=== PATIENT | male | born 1955 | race African-American/Black ===

== ENCOUNTER 2020-12-02 09:33 | Emergency (ER) | payer OTHER ==
[~2020-12-02] VITALS: Ht 195.6 cm; Wt 131.1 kg
[~2020-12-02 09:33] MED LIST: GLIM2TAB31 PO; GLIM4TAB37 PO; METF-442 PO
[2020-12-02 09:48] VITALS: BP 135/51
[2020-12-02] MEDS ORDERED: OXYMETAZOLINE HCL NASAL SPRAY 30 ML BOTTLE NS ONE (10:17)
[2020-12-02] MEDS: OXYMETAZOLINE HCL NASAL SPRAY 30 ML BOTTLE NS ONE (10:22)
[2020-12-02 10:33] LABS: BASOPHILS % (AUTO) 0.5 % (0.0-2.0); EOSINOPHILS % (AUTO) 1.7 % (0.0-6.0); HEMATOCRIT 39 % (39-51); HEMOGLOBIN 12.8 g/dL (13.5-17.5); LYMPHOCYTES # (AUTO) 2.1 /CMM (0.8-4.8); MEAN CORPUSCULAR HGB CONC 33 g/dl (31.0-36.0); MEAN CORPUSCULAR VOLUME 92 fL (80-96); MONOCYTES # (AUTO) 0.5 /CMM (0.1-1.30); NEUTROPHILS # (AUTO) 3.4 /CMM (1.8-8.9); NEUTROPHILS % (AUTO) 55.8 % (43.0-81.0); PLATELET COUNT (AUTO) 176 /CMM (150-450); RED BLOOD CELL COUNT(AUTO) 4.26 MIL/uL (4.5-6.0)
== END 2020-12-02 11:42 | disposition home or self-care (01) ==
LOC: ER 09:36
DX: R04.0 Epistaxis (principal); I10 Essential (primary) hypertension; E11.9 Type 2 diabetes mellitus without complications; Z95.1 Presence of aortocoronary bypass graft; Z98.890 Other specified postprocedural states; Z79.84 Long term (current) use of oral hypoglycemic drugs; Z79.899 Other long term (current) drug therapy
CPT/HCPCS: 36415; 85025-TC; 85730-TC

== ENCOUNTER 2021-06-08 00:40 | Emergency (ER) | payer OTHER ==
[~2021-06-08] VITALS: Ht 195.6 cm; Wt 131.5 kg
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
--- NOTE | 2021-06-08 01:17 | NUR ---
ER AT BEDSIDE
--- NOTE | 2021-06-08 01:22 | NUR ---
COVID SWABS DONE AND SENT TO LAB.
[2021-06-08 03:30] VITALS: BP 138/69
--- NOTE | 2021-06-08 03:30 | NUR ---
Patient discharged to home in stable condition. Written and verbal after care instructions given. Patient verbalizes understanding of instruction.
== END 2021-06-08 03:25 | disposition home or self-care (01) ==
LOC: ER 00:47
DX: R05.9 Cough, unspecified (principal); R52 Pain, unspecified; Z20.822 Contact with and (suspected) exposure to COVID-19; E11.65 Type 2 diabetes mellitus with hyperglycemia; Z79.84 Long term (current) use of oral hypoglycemic drugs; I11.9 Hypertensive heart disease without heart failure; Z95.1 Presence of aortocoronary bypass graft; R94.31 Abnormal electrocardiogram [ECG] [EKG]
CPT/HCPCS: 71045; 82962; 87426; 87804; 93005; 99285; C9803

== ENCOUNTER 2021-07-02 21:23 | Emergency (ER) | payer OTHER ==
[~2021-07-02] VITALS: Ht 195.6 cm; Wt 131.5 kg
[2021-07-02 21:34] VITALS: BP 150/77
--- NOTE | 2021-07-02 21:41 | NUR ---
BIBS TO ER BED 19. AAOX4. AMBULATORY. NOT IN DISTRESS. BREATHING EVEN AND UNLABORED. CAME IN FOR COUGH AND CONGESTION X 2 DAYS. PT IS TALKING IN FULL SENTENCES. SATTING AT 96% ON RA. PT IS AFEBRILE. AWAITING MD FOR MARY
--- NOTE | 2021-07-02 22:58 | NUR ---
XRAY AT BEDSIDE. COVID SWAB DONE AND SENT TO LAB
--- NOTE | 2021-07-02 23:00 | NUR ---
Dilip whitten in ED - 07/02/21 at 2300 by ADAM XRAY AT BEDSIDE
[2021-07-03] MEDS ORDERED: GUAI200T5 PO (01:06)
== END 2021-07-03 01:17 | disposition home or self-care (01) ==
LOC: ER 21:28
DX: J20.9 Acute bronchitis, unspecified (principal); Z20.822 Contact with and (suspected) exposure to COVID-19; Z95.1 Presence of aortocoronary bypass graft; E11.9 Type 2 diabetes mellitus without complications; I11.9 Hypertensive heart disease without heart failure; Z79.84 Long term (current) use of oral hypoglycemic drugs; Z79.899 Other long term (current) drug therapy
CPT/HCPCS: 71046; 99284; C9803; U0003

== ENCOUNTER 2022-01-12 13:44 | Emergency (ER) | payer OTHER ==
[~2022-01-12] VITALS: Ht 195.6 cm; Wt 94.3 kg
[~2022-01-12 13:44] MED LIST changes: +GUAI200T5 PO
--- NOTE | 2022-01-12 14:10 | NUR ---
C/O SOB X 5 DAYS. PT AAOX4, VSS. DENIES CP, DIZZINESS, N/V AT THIS TIME. PLACED ON KILN MECHANIC, SR. WILL CONT TO MONITOR.
--- NOTE | 2022-01-12 14:40 | NUR ---
DR. LONGO AT BS FOR EVAL.
[2022-01-12 15:31] LABS: BASOPHILS % (AUTO) 0.4 % (0.0-2.0); EOSINOPHILS % (AUTO) 0.1 % (0.0-6.0); HEMATOCRIT 42 % (39-51); LYMPHOCYTES # (AUTO) 0.8 K/uL (0.8-4.8); LYMPHOCYTES % (AUTO) 12.4 % (20.0-44.0); MEAN CORPUSCULAR HGB CONC 34 g/dl (31.0-36.0); MEAN CORPUSCULAR VOLUME 90 fL (80-96); MONOCYTES # (AUTO) 0.8 K/uL (0.1-1.30); MONOCYTES % (AUTO) 12.4 % (2.0-12.0); NEUTROPHILS # (AUTO) 4.5 K/uL (1.8-8.9); NEUTROPHILS % (AUTO) 74.7 % (43.0-81.0); PLATELET COUNT (AUTO) 173 K/uL (150-450); RED BLOOD CELL COUNT(AUTO) 4.64 MIL/uL (4.5-6.0); WHITE BLOOD COUNT (AUTO) 6.1 K/uL (4.3-11.0)
[2022-01-12] MEDS ORDERED: INSU100I4 SQ (15:39)
[2022-01-12] MEDS ORDERED: TAMS-12 PO (15:39)
[2022-01-12] MEDS ORDERED: POTA10CA43 PO (15:39)
[2022-01-12] MEDS ORDERED: METO-357 PO (15:39)
[2022-01-12] MEDS ORDERED: INSU100I26 SQ (15:39)
[2022-01-12] MEDS ORDERED: LOSA100T31 PO (15:39)
[2022-01-12] MEDS ORDERED: ASPI-1420 PO (15:40)
[2022-01-12] MEDS ORDERED: ATOR80TA PO (15:40)
[2022-01-12] MEDS ORDERED: AMLO-213 PO (15:40)
[2022-01-12] MEDS ORDERED: FURO20TA4 PO (15:40)
--- NOTE | 2022-01-12 15:55 | NUR ---
MOVE SHEET SUBMITTED.
[2022-01-12 16:31] LABS: ALANINE AMINOTRANSFERASE 28 U/L (12-78); ALBUMIN 3.8 g/dL (3.4-5.0); ALKALINE PHOSPHATASE 109 U/L (46-116); ASPARTATE AMINOTRANSFERASE 22 U/L (15-37); BILIRUBIN,DIRECT 0.2 mg/dL (0.0-0.2); BILIRUBIN,TOTAL 0.6 mg/dL (0.2-1.0); CALCIUM, SERUM 9.2 mg/dL (8.5-10.1); CARBON DIOXIDE 26 mmol/L (21-32); CHLORIDE 105 mmol/L (98-107); CREATININE 1.7 mg/dL (0.6-1.3); POTASSIUM 4.6 mmol/L (3.5-5.1); SODIUM SERUM 138 mmol/L (136-145); TOTAL PROTEIN, SERUM 8.1 g/dL (6.4-8.2); UREA NITROGEN, BLOOD 29 mg/dL (7-18)
[2022-01-12 16:33] LABS: GLUCOSE 474 mg/dL (74-106)
[2022-01-12] MEDS ORDERED: FUROSEMIDE 40 MG/4 ML VIAL IV ONE (17:30)
[2022-01-12] MEDS ORDERED: INSULIN REGULAR, HUMAN 100 UNIT/ML 10 ML VIAL SQ ONE (17:30)
[2022-01-12] MEDS ORDERED: INSULIN REGULAR, HUMAN 100 UNIT/ML 10 ML VIAL ONE (17:31)
--- NOTE | 2022-01-12 17:40 | NUR ---
MEDICATED PER ERMD ORDER, PT JARET WELL. WILL CONT TO MONITOR.
--- NOTE | 2022-01-12 20:55 | NUR ---
Patient discharged to home in stable condition. Written and verbal after care instructions given. Patient verbalizes understanding of instruction. Mr Vu is ambulatory with a steady gait
[2022-01-12 20:57] VITALS: BP 135/72
== END 2022-01-12 20:57 | disposition home or self-care (01) ==
LOC: ER 13:49
DX: J20.9 Acute bronchitis, unspecified (principal); Z20.822 Contact with and (suspected) exposure to COVID-19; N28.9 Disorder of kidney and ureter, unspecified; J81.1 Chronic pulmonary edema; E11.65 Type 2 diabetes mellitus with hyperglycemia; Z79.4 Long term (current) use of insulin; Z79.899 Other long term (current) drug therapy; I10 Essential (primary) hypertension; Z95.1 Presence of aortocoronary bypass graft; Z79.82 Long term (current) use of aspirin; R94.31 Abnormal electrocardiogram [ECG] [EKG]
CPT/HCPCS: 36415; 71045; 80048; 80076; 82962; 83880; 84484 ×3; 85025; 87426; 93005; 96372; 96374; 99285; C9803; J1815